=== PATIENT | female | born 1985 | race Caucasian/White ===

== ENCOUNTER 2018-12-24 10:10 | Inpatient (IN) | payer BC ==
[2018-12-24 11:47] VITALS: BMI 42.1
[2018-12-24] MEDS ORDERED: Diphenoxylate HCl/Atropine Tablet PO PRN (12:33)
[2018-12-24] MEDS ORDERED: Ibuprofen 800 MG TAB PO PRN (12:33)
[2018-12-24] MEDS ORDERED: Carboprost 250 MCG/ML AMP IM PRN (12:33)
[2018-12-24] MEDS ORDERED: Lidocaine 1% (PF) 30 ML VIAL SC PRN (12:33)
[2018-12-24] MEDS ORDERED: NS / Oxytocin 40 units/1000ml 1,000 ML IV PRN (12:33)
[2018-12-24] MEDS ORDERED: Methylergonovine 0.2 MG/ML VIAL IM PRN (12:33)
[2018-12-24] MEDS ORDERED: Acetaminophen 500 MG TAB PO PRN (12:33)
[2018-12-24] MEDS ORDERED: HYDROcodone/Acetaminophen 5/325 mg Tablet PO PRN (12:33)
[2018-12-24] MEDS ORDERED: Ondansetron PF 4 MG/2 ML Vial IVP PRN (12:33)
[2018-12-24] MEDS ORDERED: Butorphanol Tartrate 1 MG/ML VIAL SLOW IVP PRN (12:33)
[2018-12-24] MEDS ORDERED: Promethazine HCl 25 MG/ML VIAL IM PRN (12:33)
[2018-12-24] MEDS ORDERED: hydrALAZINE 20 MG/ML VIAL SLOW IVP PRN (12:33)
--- NOTE | 2018-12-24 12:38 | PDOC.LDHP ---
Labor and Delivery H&P Chief complaint: other HPI: 33 yo @ 37w1d sent from clinic for delivery due to BPP 06/08, now 08/10 with NST. Antepartum course complicated by h/o DVT on Lovenox (last dose 24 hr ago), obesity and macrosomic growth curve (98%) on sono today- 3900 g. Current gestational age (weeks): 37 Due date: 01/13/19 Dating criteria: first trimester ultrasound Grav: 2 Para: 0 OB History Details: 1 SAB Current complications: none Abnormal US findings: Yes (BPP 06/08 today ) Past Medical History: H/O DVT, negative work up Depression Current medications: pre-yue vitamins, other (Lovenox 40 mg daily, last dose AM of 12/23/18 Zoloft 100 mg QD ASA 81 mg QD) Allergies/Adverse Reactions: Allergies Allergy/AdvReac Type Severity Reaction Status Date / Time No Known Allergies Allergy Verified 12/24/18 11:03 Social history: none - Physical Exam Vital signs reviewed and normal: yes General: NAD Heart: RRR Lungs: nonlabored breathing Abdomen: gravid Extremeties: trace edema FHT: category 1 (140s, mod estela, +accels, no decels) [place] contractions every: no ctx - Vaginal Exam cm dilated: 1 (cephalic; cook balloon placed 80/80 cc) Effacement: 25% Station: -2 - OB Labs Blood type: A RH: positive Antibody Screen: negative HIV: negative RPR: negative HEPSAg: negative 1 hour GCT: negative GBS: positive Urine drug screen: negative Rubella: immune Additional Labs: Thrombophilia work up wnl NIPT, msAFP wnl - Assessment 37w1d IUP BPP 08/10 Morbid obesity H/O DVT Possible macrosomia, EFW 3900 today GBS + - Plan Plan: admit to L&D, cervical ripening, GBS antibiotic prophylaxis, informed consent obtained, anesthesia consult for pain management -: FHTs reassuring, will attempt IOL. Placed cook balloon, start pitocin when balloon out.
[2018-12-24] MEDS ORDERED: Penicillin G Potassium 5 MILL.UNITS in Sodium Chloride 0.9% 100 ML IVPB SCH (12:45)
[2018-12-24 13:21] LABS: Hemoglobin 12.2 g/dL (12.0-16.0); Mean Corpuscular HGB CONC 33.6 g/dL (32.0-36.0); Mean Corpuscular Hemoglobin 29.1 pg (27.0-31.0); Mean Corpuscular Volume 86.5 fL (78.0-98.0); Mean Platelet Volume 8.7 fL (7.4-10.4); Platelet Count 222 thou/uL (130-400); RBC Distribution Width 12.5 % (11.5-14.5); White Blood Cell (WBC) Count 13.7 thou/uL (4.8-10.8)
[2018-12-24] MEDS: Lactated Ringer's 1,000 ML IV SCH (13:55)
[2018-12-24 14:00] LABS: HBSAg Index 0.13 S/CO (0-0.99); HIV (1/2) Antibody/Antigen Non-Reactive (NonReactive); HIV 1/2 INDEX 0.06 S/CO (<1.00); Hep B Surf Ag Non-Reactive S/CO (NonReactive); Syphilis Antibody Nonreactive (Nonreactive); Syphilis Antibody Index 0.08 S/CO (<1.00 Non-Reactive)
[2018-12-25] MEDS: Penicillin G 2.5 MILL.units 2.5 MILL.UNITS in Premix Bag 1 BAG IVPB SCH ×5 (01:26→18:43)
[2018-12-25] MEDS: Lactated Ringer's 1,000 ML IV SCH ×5 (01:26→18:42)
[2018-12-25] MEDS: NS w/ Oxytocin 10 units 500 ML IV SCH ×2 (01:43→13:04)
--- NOTE | 2018-12-25 07:59 | PDOC.LDPN ---
Labor & Delivery Progress Note - Subjective Subjective: comfortable - Objective Vital signs reviewed and normal: yes General: NAD Uterine fundus: non tender Dilation: 4 Effacement: 50% Station: -2 FHT: category 1 (150s, mod estela, +accels, no decels ) [place] contractions every: q3 min AROM: clear fluid IUPC placed: yes FSE placed: yes - Assessment (1) 37 weeks gestation of Code(s): Z3A.37 - 37 WEEKS GESTATION OF Current Visit: Yes Status : Acute (2) Encounter for induction of labor Code(s): Z34.90 - ENCNTR FOR SUPRVSN OF NORMAL , UNSP, UNSP TRIMESTER Current Visit: Yes Status: Acute (3) History of DVT (deep vein thrombosis) Code(s): Z86.718 - PERSONAL HISTORY OF OTHER VENOUS THROMBOSIS AND EMBOLISM Current Visit: Yes Status: Acute (4) Advanced maternal age (AMA) in Code(s): [id number] - Current Visit: Yes Status: Acute (5) Obesity Code(s): E66.9 - OBESITY, UNSPECIFIED Current Visit: Yes Status: Acute (6) macrosomia Code(s): O36.60X0 - MATERNAL CARE FOR EXCESS GROWTH, UNSP TRIMESTER, UNSP Current Visit: Yes Status: Acute Plan: continue plan of care, pitocin for augmentation
[2018-12-25] MEDS ORDERED: Famotidine/PF 20 mg/2ml Vial SLOW IVP SCH (08:15)
[2018-12-25] MEDS ORDERED: Fentanyl 4 mcg/Bup 0.1% Cadd 100 ML ONE ×2 (09:24→15:50)
[2018-12-25] MEDS ORDERED: Acetaminophen 325 MG TAB PO PRN (10:59)
[2018-12-25] MEDS ORDERED: Lactated Ringer's 500 ML IV PRN (10:59)
[2018-12-25] MEDS ORDERED: Promethazine HCl 25 MG/ML VIAL IM PRN (10:59)
[2018-12-25] MEDS ORDERED: Ondansetron PF 4 MG/2 ML Vial IVP PRN ×2 (10:59→22:22)
[2018-12-25] MEDS ORDERED: diphenhydrAMINE 50 MG/ML VIAL IVP PRN (10:59)
[2018-12-25] MEDS ORDERED: Naloxone HCl 0.4 mg/ml Vial IVP PRN ×2 (10:59)
[2018-12-25] MEDS ORDERED: ePHEDrine/0.9% NaCl/PF SYRINGE 50 mg/10 ml SLOW IVP PRN (10:59)
[2018-12-25] MEDS ORDERED: Communication Order-Pharmacy FS SCH (11:00)
[2018-12-25] MEDS ORDERED: Fentanyl 4 mcg/Bupivacaine 0.1% Cassette 100 ML EPIDURAL SCH (11:00)
[2018-12-25] MEDS ORDERED: Bupivacaine 0.25% HCL 30 ML VIAL ONE (11:11)
[2018-12-25] MEDS ORDERED: FLU VACC QS2019-20(6MOS UP)/PF 60 MCG/0.5 ML SYRINGE IM ONE (12:00)
--- NOTE | 2018-12-25 12:19 | PDOC.LDPN ---
Labor & Delivery Progress Note - Subjective Subjective: comfortable - Objective Vital signs reviewed and normal: yes General: NAD Uterine fundus: non tender Dilation: 5 Effacement: 75% Station: -2 FHT: category 1 [place] contractions every: q2 min - Assessment (1) 37 weeks gestation of Code(s): Z3A.37 - 37 WEEKS GESTATION OF Current Visit: Yes Status : Acute (2) Encounter for induction of labor Code(s): Z34.90 - ENCNTR FOR SUPRVSN OF NORMAL , UNSP, UNSP TRIMESTER Current Visit: Yes Status: Acute (3) History of DVT (deep vein thrombosis) Code(s): Z86.718 - PERSONAL HISTORY OF OTHER VENOUS THROMBOSIS AND EMBOLISM Current Visit: Yes Status: Acute (4) Advanced maternal age (AMA) in Code(s): [id number] - Current Visit: Yes Status: Acute (5) Obesity Code(s): E66.9 - OBESITY, UNSPECIFIED Current Visit: Yes Status: Acute (6) macrosomia Code(s): O36.60X0 - MATERNAL CARE FOR EXCESS GROWTH, UNSP TRIMESTER, UNSP Current Visit: Yes Status: Acute Plan: continue plan of care, pitocin for augmentation -: MVUs adequate; continue pitocin mgmt Monitor progress FHTs still reassuring
--- NOTE | 2018-12-25 15:50 | PDOC.LDPN ---
Labor & Delivery Progress Note - Subjective Subjective: comfortable - Objective Vital signs reviewed and normal: yes General: NAD Uterine fundus: non tender Dilation: 6 Effacement: 75% Station: -2 FHT: category 1 (150s, mod estela, +accels, no decels ) [place] contractions every: q2-3 min Other exam findings: MVUs adequate majority of assessment - Assessment (1) 37 weeks gestation of Code(s): Z3A.37 - 37 WEEKS GESTATION OF Current Visit: Yes Status : Acute (2) Encounter for induction of labor Code(s): Z34.90 - ENCNTR FOR SUPRVSN OF NORMAL , UNSP, UNSP TRIMESTER Current Visit: Yes Status: Acute (3) History of DVT (deep vein thrombosis) Code(s): Z86.718 - PERSONAL HISTORY OF OTHER VENOUS THROMBOSIS AND EMBOLISM Current Visit: Yes Status: Acute (4) Advanced maternal age (AMA) in Code(s): [id number] - Current Visit: Yes Status: Acute (5) Obesity Code(s): E66.9 - OBESITY, UNSPECIFIED Current Visit: Yes Status: Acute (6) macrosomia Code(s): O36.60X0 - MATERNAL CARE FOR EXCESS GROWTH, UNSP TRIMESTER, UNSP Current Visit: Yes Status: Acute -: Continue pitocin to consistently achieve adequate MVUs now that pt comfortable with epidural. Reviewed protracted labor course. Her exam is actually 6 cm (previously documented to be 8 cm). Check out given to Dr. Hercules for mgmt by OB.
--- NOTE | 2018-12-25 18:15 | PDOC.LDPN ---
Labor & Delivery Progress Note - Subjective Subjective: comfortable - Objective Vital signs reviewed and normal: yes General: NAD, resting Uterine fundus: non tender Dilation: 8.5 Effacement: 100% Station: 0 FHT: category 1 [place] contractions every: 3 Plan: continue plan of care
[2018-12-25] MEDS ORDERED: Misoprostol 200 MCG TAB ONE (21:57)
[2018-12-25] MEDS ORDERED: Carboprost 250 MCG/ML AMP ONE (21:57)
[2018-12-25] MEDS ORDERED: Lanolin Ointment 7 GM TUBE TOP PRN (22:22)
[2018-12-25] MEDS ORDERED: HYDROcodone/Acetaminophen 5/325 mg Tablet PO PRN ×2 (22:22)
[2018-12-25] MEDS ORDERED: Bisacodyl 10 MG SUPP PR PRN (22:22)
[2018-12-25] MEDS ORDERED: hydrALAZINE 20 MG/ML VIAL SLOW IVP PRN (22:22)
[2018-12-25] MEDS ORDERED: Misoprostol 200 MCG TAB VAG PRN (22:22)
[2018-12-25] MEDS ORDERED: diphenhydrAMINE 25 MG CAP PO PRN (22:22)
[2018-12-25] MEDS ORDERED: Benzocaine-Menthol 82.5 ML CAN TOP PRN (22:22)
[2018-12-25] MEDS ORDERED: Preparation H Ointment 28 GM TUBE PR PRN (22:22)
[2018-12-25] MEDS ORDERED: Milk Of Magnesia 30 ML UDCUP PO PRN (22:22)
[2018-12-25] MEDS ORDERED: Methylergonovine 0.2 MG/ML VIAL IM PRN (22:22)
[2018-12-25] MEDS ORDERED: Zolpidem Tartrate 5 MG TAB PO PRN (22:22)
[2018-12-25] MEDS ORDERED: NS / Oxytocin 40 units/1000ml 1,000 ML IV SCH (22:30)
[2018-12-26] MEDS: Ibuprofen 800 MG TAB PO SCH ×4 (02:05→23:50)
--- NOTE | 2018-12-26 08:45 | PDOC.OPDEL ---
OB Operative/Delivery Note Delivery Dr/Surgeon: Diomedes Bar Pre-Delivery Diagnosis: medically indicated induction Procedure/Post Delivery Dx: spontaneous vaginal delivery Weeks gestation: 37 (37.1 wks) Anesthesia: epidural - Findings A Sex: female Weight: 3.545 kg - 1 min: 8 - 5 min: 9 - Additional Findings/Plan Placenta delivered: spontaneous Repaired Obstetrical Laceration: 2nd degree Estimated blood loss: 630 mL Compilations/Other Findings: Delivering Physician: Catia Bar DO Attending: Priyanka Hercules MD Procedure: Spontaneous Vaginal Delivery Anesthesia: Epidural, Local for Repair QBL: 630 mL Pre-op Diagnosis: 1. Term intrauterine 2. IOL for BPP 06/08 with repeat 08/10 with NST 3. History of DVT with negative workup, on lovenox 4. SAB x1 5. Depression 6. Obesity 7. macrosomia (98%) Post-op Diagnosis: 1. Term intrauterine , delivered 2. same as above Indications: A 33 y/o female presented to L&D for induction of labor Delivery Note: This is 33 yo F @ 37.1 wks who delivered a viable F at 21:51 on 12/25/2018. Following an uneventful intrapartum course, a vigorous F was delivered over an intact perineum in the occipitoanterior position. Anterior Shoulder and then remainder of the body delivered. No nuchal cord. The head was held down and mouth and nares were bulb suctioned. Cord clamped and cut and cord blood collected. Placenta delivered intact with a 3 vessel cord noted. Fundal massage was performed and the fundus was firm. The cervix and vagina were inspected and a second degree perineal laceration was noted and repaired with 2-0 Vicryl in the usual fashion with good approximation and hemostasis after a local anesthetic with 1% lidocaine was injected at site. went to nursery in good condition for routine care. Apgars were 8/9 at 1 & 5 minutes, respectively. Patient tolerated delivery well and went to after routine recovery/care. Post delivery plan: routine recovery
--- NOTE | 2018-12-26 08:48 | PDOC.PP ---
Post Progress Note Post Day #: 1 Subjective: Patient doing well. No significant overnight events. Patient tolerating PO. Lochia minimal. PO intake tolerated: yes Flatus: yes Ambulation: yes Vital Signs (12 hours) Temp Pulse Resp BP BP Pulse Ox 12/26/18 04:00 98.7 F 89 18 108/58 L 12/26/18 02:00 99.3 F 93 18 104/59 L 12/26/18 01:00 99.0 F 93 18 124/58 L 98 Weight Weight 118.388 kg - Physical Examination General: NAD Cardiovascular: RRR Respiratory: non-labored breathing Abdominal: + bowel sounds, lochia (minimal), no distention, appropriately TTP Fundus firm & at: below umbilicus Skin: no rash Neurological: no gross focal deficits Psychiatric: A&Ox3, normal affect Result Diagrams: 12/24/18 12:56 Additional Labs: Post Labs Blood Type A POSITIVE 12/24/18 12:56 Hep Bs Antigen Non-Reactive S/CO (NonReactive) 12/24/18 12:56 (1) Term delivered Code(s): O80 - ENCOUNTER FOR FULL-TERM UNCOMPLICATED DELIVERY Status: Acute (2) Advanced maternal age (AMA) in Code(s): [id number] - Status: Acute (3) History of DVT (deep vein thrombosis) Code(s): Z86.718 - PERSONAL HISTORY OF OTHER VENOUS THROMBOSIS AND EMBOLISM Status: Acute - Assessment/Plan Routine PP care - PPD #1 - Meeting all PP milestones - Rh positive - GBS positive, adequately treated GBS positive, adequately treated Hx DVT - After trauma, with negative workup - On lovenox during pregancy - Continue lovenox PP for 6 weeks Depression - Continue zoloft Dispo: D/c home tomorrow.
[2018-12-26] MEDS ORDERED: Varicella virus, LIVE 0.5 ML VIAL SC ONE (09:00)
[2018-12-26] MEDS ORDERED: Adacel (T-DAP) 0.5 ML SYRINGE IM ONE (09:00)
[2018-12-26] MEDS ORDERED: Measles/Mumps/Rubella 10 MCG/0.5 ML VIAL SC ONE (09:00)
[2018-12-26] MEDS ORDERED: Enoxaparin Sodium 40 MG/0.4 ML SYRINGE SC SCH (10:00)
[2018-12-26] MEDS: Prenatal Vitamin 1 TAB PO SCH (10:15)
[2018-12-26] MEDS: Ferrous Sulfate 325 MG TAB PO SCH (20:49)
[2018-12-26] MEDS: Docusate Calcium (SURFAK) 240 MG CAP PO SCH ×2 (20:56→22:28)
[2018-12-26 21:27] VITALS: TEMP 98.2
[2018-12-26] MEDS: Penicillin G 2.5 MILL.units 2.5 MILL.UNITS in Premix Bag 1 BAG IVPB SCH (21:28)
--- NOTE | 2018-12-27 06:34 | PDOC.PP ---
Post Progress Note Post Day #: 2 Subjective: Doing well PO intake tolerated: yes Flatus: yes Ambulation: yes Vital Signs (12 hours) Temp Pulse Resp BP Pulse Ox 12/26/18 20:25 98.2 F 79 18 100/60 98 Weight Weight 261 lb Past vitals reviewed - Physical Examination General: NAD Cardiovascular: no m/r/g Respiratory: clear to auscultation bilaterally Abdominal: + bowel sounds, lochia, no distention, appropriately TTP Extremities: negative homans (B) Neurological: no gross focal deficits Psychiatric: A&Ox3, normal affect Result Diagrams: 12/24/18 12:56 Additional Labs: Post Labs Blood Type A POSITIVE 12/24/18 12:56 Hep Bs Antigen Non-Reactive S/CO (NonReactive) 12/24/18 12:56 (1) History of DVT (deep vein thrombosis) Code(s): Z86.718 - PERSONAL HISTORY OF OTHER VENOUS THROMBOSIS AND EMBOLISM Status: Acute (2) Term delivered Code(s): O80 - ENCOUNTER FOR FULL-TERM UNCOMPLICATED DELIVERY Status: Acute - Assessment/Plan PPD2. We will send home today and continue Lovenox 40mg SQ QD. Follow up in 2 weeks
[2018-12-27] MEDS: Ibuprofen 800 MG TAB PO SCH ×2 (06:44→15:08)
[2018-12-27] MEDS ORDERED: Enoxaparin Sodium 40 MG/0.4 ML SYRINGE SC SCH (09:00)
[2018-12-27] MEDS: Docusate Calcium (SURFAK) 240 MG CAP PO SCH (11:29)
[2018-12-27] MEDS: Prenatal Vitamin 1 TAB PO SCH (11:29)
[2018-12-27] MEDS: Ferrous Sulfate 325 MG TAB PO SCH (15:08)
[2018-12-27 17:38] VITALS: BP 118/56
== END 2018-12-27 18:22 | disposition home or self-care (01) | DRG 807 ==
LOC: L&D 10:10 → 3SW 12-26 01:15
PROVIDERS: ADMIT Obstetrics & Gynecology; ATTEND Obstetrics & Gynecology
PROC: 10E0XZZ Delivery of Products of Conception, External Approach (ICD-10-PCS; principal; 2018-12-26)
PROC: 0KQM0ZZ Repair Perineum Muscle, Open Approach (ICD-10-PCS; 2018-12-26)
PROC: 10907ZC Drainage of Amniotic Fluid, Therapeutic from Products of Conception, Via Natural or Artificial Opening (ICD-10-PCS; 2018-12-26)
PROC: 3E0P7VZ Introduction of Hormone into Female Reproductive, Via Natural or Artificial Opening (ICD-10-PCS; 2018-12-26)
PROC: 3E033VJ Introduction of Other Hormone into Peripheral Vein, Percutaneous Approach (ICD-10-PCS; 2018-12-26)
PROC: 3E02340 Introduction of Influenza Vaccine into Muscle, Percutaneous Approach (ICD-10-PCS; 2018-12-26)
DX: O36.63X0 Maternal care for excessive fetal growth, third trimester, not applicable or unspecified (principal); Z37.0 Single live birth; O99.214 Obesity complicating childbirth; O99.824 Streptococcus B carrier state complicating childbirth; O70.1 Second degree perineal laceration during delivery; O99.344 Other mental disorders complicating childbirth; Z23 Encounter for immunization; E66.01 Morbid (severe) obesity due to excess calories; F32.9 Major depressive disorder, single episode, unspecified; Z3A.37 37 weeks gestation of pregnancy; Z86.718 Personal history of other venous thrombosis and embolism; Z79.01 Long term (current) use of anticoagulants
CPT/HCPCS: 36415; 51702; 85027; 86780; 86850; 86900; 86901; 87340; 87389; C1726; J1650; J2540; J2590; J3490; S0020; S0028